=== PATIENT | male | born 1995 | race Caucasian/White ===

== ENCOUNTER 2022-08-03 01:21 | Emergency (ER) | payer MEDICAID ==
[~2022-08-03] VITALS: Ht 182.9 cm; Wt 74.2 kg
[2022-08-03 01:38] VITALS: BP 126/81
[2022-08-03 03:50] LABS: HEMATOCRIT 42.3 % (42.0-52.0); HEMOGLOBIN 14.4 g/dL (14.0-18.0); MEAN CORPUSCULAR HEMOGLOBIN 28.6 pg (28.0-32.0); MEAN CORPUSCULAR VOLUME 84.1 fL (80.0-94.0); PLATELET 279 x1000/uL (130-400); RED BLOOD CELL COUNT 5.04 mill/uL (4.7-6.1); RED CELL DISTRIBUTION WIDTH 13.6 % (11.6-14.6)
[2022-08-03 04:26] LABS: CHLORIDE 99 mEq/L (98-107)
[2022-08-03 04:39] LABS: ETHANOL BLOOD < 10 mg/dL
[2022-08-03] MEDS ORDERED: NALO4SPR BOTHNSTRLS (04:57)
[2022-08-03 05:25] LABS: *AMPHETAMINES SCREEN URINE NEGATIVE (NEGATIVE); *BARBITURATES SCREEN URINE NEGATIVE (NEGATIVE); *BENZODIAZEPINES SCREEN URINE NEGATIVE (NEGATIVE); *COCAINE SCREEN URINE NEGATIVE (NEGATIVE); CANNABINOID URINE SCREEN PRESUMTIVE POSITIVE (NEGATIVE); METHADONE URINE SCREEN NEGATIVE (NEGATIVE); OPIATES URINE SCREEN NEGATIVE (NEGATIVE); PHENCYCLIDINE URINE SCREEN NEGATIVE (NEGATIVE)
== END 2022-08-03 06:42 | disposition home or self-care (01) ==
LOC: ER 01:21
DX: D18.09 Hemangioma of other sites (principal); F11.90 Opioid use, unspecified, uncomplicated; Z88.0 Allergy status to penicillin; Z98.890 Other specified postprocedural states
CPT/HCPCS: 36415; 80053; 80305; 80320; 85027; 99283; G0480

== ENCOUNTER 2024-03-02 15:13 | Emergency (ER) | payer MEDICAID ==
[~2024-03-02] VITALS: Ht 172.7 cm; Wt 64.0 kg
[~2024-03-02 15:13] MED LIST: FERR325T6 PO
[2024-03-02 15:26] VITALS: BP 124/67; PULSE 88; RESP 15; TEMP 98; O2SAT 100
[2024-03-02 18:40] LABS: BASOPHILS % 1.4 % (0.0-2.0); EOSINOPHILS % 0.1 % (0.0-5.0); HEMATOCRIT. 23.2 % (42.0-52.0); HEMOGLOBIN. 7.6 g/dL (14.0-18.0); LYMPHOCYTES % 17.1 % (20.0-50.0); MEAN CORPUSCULAR HEMOGLOBIN 26.8 pg (28.0-32.0); MEAN CORPUSCULAR HGB CONC 32.9 g/dL (31.0-37.0); MEAN CORPUSCULAR VOLUME 81.5 fL (80.0-94.0); MEAN PLATELET VOLUME 7.6 fl (7.4-10.4); MONOCYTES % 3.3 % (2.0-8.0); NEUTROPHILS % 78.1 % (40.0-76.0); PLATELET 351 x1000/uL (130-400); RED BLOOD CELL COUNT 2.84 mill/uL (4.7-6.1); WHITE BLOOD COUNT 3.4 x1000/uL (4.5-11.0)
[2024-03-02 18:46] LABS: CHLORIDE 95 mEq/L (98-107); POTASSIUM 3.2 mEq/L (3.5-5.1); SODIUM 128 mEq/L (136-145)
[2024-03-02 18:47] LABS: CALCIUM 9.2 mg/dL (8.7-10.4); CARBON DIOXIDE 18 mEq/L (21-32)
[2024-03-02 18:49] LABS: INR 1.2; PARTIAL THROMBOPLASTIN TIME 30.5 sec (23.4-31.0); PROTHROMBIN TIME 13.7 sec (9.6-11.0)
[2024-03-02 18:52] LABS: CREATININE 0.6 mg/dL (0.6-1.3); GLUCOSE 103 mg/dL (70-105); UREA NITROGEN BLOOD 6 mg/dL (9-23)
[2024-03-02 18:54] LABS: ALANINE AMINOTRANSFERASE < 7 IU/L (10-49); ASPARTATE AMINOTRANSFERASE 9 IU/L (<34); BILIRUBIN DIRECT 0.7 mg/dL (<=3.0); BILIRUBIN TOTAL 1.5 mg/dL (0.1-1.0); PROTEIN TOTAL 6.7 g/dL (6.0-8.3)
[2024-03-02] MEDS: POTASSIUM CHLORIDE 20MEQ TABLET SR PO ONE (21:08)
[2024-03-02] MEDS: SODIUM CHLORIDE 0.9% 1,000 ML IV ONE (21:08)
[2024-03-02] MEDS: POTASSIUM CHLORIDE 20MEQ TABLET SR PO NR (21:45)
== END 2024-03-02 22:30 | disposition home or self-care (01) ==
LOC: ER 15:13
DX: D64.9 Anemia, unspecified (principal); E87.1 Hypo-osmolality and hyponatremia; E87.6 Hypokalemia; F12.90 Cannabis use, unspecified, uncomplicated
CPT/HCPCS: 80076; 80048; 85025; 85610; 85730; 86850; 86900; 86901; 36415; 99283; J7030; Z7610 ×2